=== PATIENT | female | born 1975 | race Caucasian/White ===

== ENCOUNTER → 2020-11-18 13:19 | Outpatient (BNVA) | payer OTHER, SELFPAY | PROVIDERS: Family Provider Family Medicine; PCP Family Medicine; Visit Provider Obstetrics & Gynecology | DX: R39.9 Unspecified symptoms and signs involving the genitourinary system (principal) | CPT/HCPCS: 81000; 87086 ==

== ENCOUNTER 2021-01-11 10:24 | Outpatient (CLI) | payer OTHER, SELFPAY ==
--- NOTE | 2021-01-11 10:30 | MM_ITS ---
WS: [id number] BILATERAL DIGITAL SCREENING MAMMOGRAPHY WITH CAD CLINICAL INFORMATION: Z12.39 - Encounter for other screening for malignant neop... HISTORY: Screening mammogram. No current complaints. COMPARISON: TECHNIQUE: Bilateral CC and MLO views. FINDINGS: The breasts are composed of heterogeneous fibroglandular density tissue, which can limit the detectio n of small underlying mass lesions. No suspicious mass, asymmetry, calcifications, or architectural d istortion. No evidence of malignancy. MM/[id number] IMPRESSION: BI-RADS: 1-Negative FOLLOW UP: 1 Year Follow-up Recommend return to annual screening mammography.
== END 2021-01-11 10:25 | disposition home or self-care (01) ==
LOC: RADSHAW 10:27
PROVIDERS: PCP Family Medicine; Visit Provider Obstetrics & Gynecology
DX: Z12.31 Encounter for screening mammogram for malignant neoplasm of breast (principal)
CPT/HCPCS: 77067

== ENCOUNTER 2022-02-07 09:48 | Outpatient (CLI) | payer OTHER, SELFPAY ==
--- NOTE | 2022-02-07 09:55 | MM_ITS ---
WS: [id number] BILATERAL SCREENING DIGITAL BREAST TOMOSYNTHESIS MAMMOGRAM WITH CAD HISTORY: Z12.39 - Encounter for other screening for malignant neoplasm COMPARISON: 01/11/2021 and 07/09/2018 and 04/06/2015 Bilateral CC and MLO views with tomosynthesis and synthetic mammography submitted. Computer aided det ection analyzed. Breast composition: There are scattered areas of fibroglandular density. No suspicious masses, microc alcifications or architectural distortion. MM/[place] [id number] IMPRESSION: BI-RADS: 1-Negative FOLLOW UP: 1 Year Follow-up
== END 2022-02-07 09:49 | disposition home or self-care (01) ==
LOC: RAD 09:52
PROVIDERS: PCP Family Medicine; Visit Provider Obstetrics & Gynecology
DX: Z12.31 Encounter for screening mammogram for malignant neoplasm of breast (principal)
CPT/HCPCS: 77063; 77067

== ENCOUNTER → 2023-01-30 10:00 | Outpatient (BNVA) | payer OTHER, SELFPAY | PROVIDERS: PCP Family Medicine; Visit Provider Obstetrics & Gynecology | DX: Z01.419 Encounter for gynecological examination (general) (routine) without abnormal findings (principal) | CPT/HCPCS: 87624 ==

== ENCOUNTER 2024-03-04 09:39 | Outpatient (CLI) | payer OTHER, SELFPAY ==
--- NOTE | 2024-03-04 10:00 | MM_ITS ---
WS: [id number] SCREENING DIGITAL TOMOSYNTHESIS MAMMOGRAM WITH CAD HISTORY: Z12.39 - Encounter for other screening for malignant neop... COMPARISON: 02/07/2022, 01/11/2021 Bilateral CC and MLO with tomosynthesis views submitted. Synthetic mammography reviewed. Computer aid ed detection analyzed. Breast composition: There are scattered areas of fibroglandular density. No suspicious masses, microc alcifications or architectural distortion. MM/[place] [id number] IMPRESSION: BI-RADS: 1-Negative FOLLOW UP: 1 Year Follow-up
== END 2024-03-04 09:40 | disposition home or self-care (01) ==
LOC: RAD 09:39
PROVIDERS: PCP Family Medicine; Visit Provider Nurse Practitioner Women's Health
DX: Z12.31 Encounter for screening mammogram for malignant neoplasm of breast (principal); R92.323 Mammographic fibroglandular density, bilateral breasts
CPT/HCPCS: 77063; 77067

== ENCOUNTER 2025-03-14 13:36 | Outpatient (CLI) | payer OTHER, SELFPAY ==
--- NOTE | 2025-03-14 14:00 | MM_ITS ---
WS: [id number] BILATERAL 3D TOMOSYNTHESIS DIGITAL SCREENING MAMMOGRAPHY WITH CAD CLINICAL INFORMATION: Z12.31 - Encounter for screening mammogram for malignant ... HISTORY: Screening mammogram. No current complaints. COMPARISON: 2023 TECHNIQUE: Bilateral CC and MLO views. FINDINGS: Scattered fibroglandular densities bilaterally. No suspicious focal mass, asymmetry, calcifications, or architectural distortion. No evidence of malignancy. Benign calcifications RIGHT breast. MM/MM scr tomosynthesis [id number] IMPRESSION: DENSITY: There are scattered areas of fibroglandular density. BI-RADS: 2 - Benign. FOLLOW UP: 1 Year Follow-up Recommend return to annual screening mammography.
== END 2025-03-14 13:37 | disposition home or self-care (01) ==
LOC: RAD 13:38
PROVIDERS: PCP Family Medicine; Visit Provider Nurse Practitioner Women's Health
DX: Z12.31 Encounter for screening mammogram for malignant neoplasm of breast (principal); R92.323 Mammographic fibroglandular density, bilateral breasts; R92.1 Mammographic calcification found on diagnostic imaging of breast
CPT/HCPCS: 77063; 77067